=== PATIENT | female | born 1975 | race Caucasian/White ===

== ENCOUNTER → 2017-10-31 | Outpatient (CLI) | payer OTHER ==
--- NOTE | 2017-10-31 14:47 | Diagnostic Imaging Report ---
INDICATION: Enlarged thyroid gland, masses. TECHNIQUE: Grayscale sonographic images of the thyroid gland. CORRELATION STUDY: 01/29/2012. FINDINGS: RIGHT LOBE: Enlarged at 7.5 x 3.4 x 4.2 cm. There are multiple nodules within the right lobe. There are two more focal dominant mixed solid and partially cystic masses present. One in the central superior aspect 2.5 x 2.4 x 3.3 cm. Additional one mid inferior aspect 2.7 x 2.1 x 3.7 cm. Vascular blood flow of the solid component. Findings may have been present on the prior study but appears to be more masslike on current study for quantification purposes. LEFT LOBE: Enlarged at 6.2 x 2.5 x 2.6 cm. Heterogeneous mass inferior pole 1.8 x 1.9 x 2.3 cm appearing slightly larger previously at 1.6 x 1.3 cm. Additional one in the mid superior aspect also appears to be slightly larger 1.1 x 1.1 x 1.1 cm previously 1.1 x 0.6 cm. Heterogeneous and nodular. IMPRESSION: 1. Enlarged thyroid gland. There appear to be multiple apparently prominent masses within both lobes. Quantification is somewhat difficult. However, there appears to be generalized enlargement particularly at the left sided nodules. Findings could be reflective of multinodular goiter, neoplasm in any of the individual nodules would be difficult to exclude. 2. Consideration might be given to nuclear medicine scan for evaluation of potential cold nodule which could be reflective of potential malignancy. (Normal gland size: 4-5 x 2 x 2 cm) Dictated by: Dictated on workstation # [id number]
== END ==
LOC: RAD 13:07
PROVIDERS: ATTEND Nurse Practitioner Family
DX: E04.9 Nontoxic goiter, unspecified (principal)
CPT/HCPCS: 76536